=== PATIENT | male | born 1960 | race Asian ===

== ENCOUNTER 2017-02-05 09:06 | Emergency (ER) | payer OTHER ==
[~2017-02-05] VITALS: Ht 185.4 cm; Wt 124.0 kg
[2017-02-05 09:08] VITALS: BP 136/88
[2017-02-05] MEDS ORDERED: KETOROLAC 30 MG/1 ML ONE (09:46)
[2017-02-05] MEDS ORDERED: KETOROLAC 30 MG/1 ML IM ONE (10:00)
[2017-02-05 10:19] LABS: BLOOD UREA NITROGEN 17 mg/dL (7-18)
== END 2017-02-05 11:03 | disposition home or self-care (01) ==
LOC: ED 10:57
DX: M70.41 Prepatellar bursitis, right knee (principal)
CPT/HCPCS: 36415; 73564; 80048; 82040; 84550; 85025; 96372; 99285; J1885